=== PATIENT | female | born 1985 | race Two or more races ===

== ENCOUNTER 2017-07-06 09:29 | Emergency (ER) | payer SELFPAY ==
[~2017-07-06] VITALS: Ht 177.8 cm; Wt 62.6 kg
[2017-07-06] MEDS ORDERED: SUDOGEST PE10 MG PO (09:39)
[2017-07-06 09:46] VITALS: BP 107/73
[2017-07-06] MEDS ORDERED: AMOXICILLIN500 MG ORAL (11:07)
[2017-07-06 11:13] VITALS: BP 105/70
--- NOTE | 2017-07-06 12:58 | Emergency Room Report ---
History of Present Illness General Chief Complaint: Earache Source: Patient Present Illness HPI Patient presents emergency department today complaining of right ear pain. Patient states that she has a severe right ear fullness. She states that she cleaned her right ear with Q-tips. She thinks that she has impacted cerumen. She has been using [id number] treatment without much improvement. Because of this she is concerned about flying home. Patient is from [place] and is flying back home to [place] tomorrow. She states that she called her insurance company who advised her to come emergency department for evaluation. She denies any fever chest pain shortness breath. Denies any cough runny nose. She however does complain a mild sore throat. No other complaints are noted. Patient needs a clearance to fly.No other modifying factors. No other associated signs and symptoms. No other complaints were noted. Allergies: Coded Allergies: No Known Allergies (Unverified , 07/06/17) Patient History Past Medical History: none Past Surgical History: none Pertinent Family History: none Social History: Denies: smoking, alcohol use, drug use Last Menstrual Period: on period Reviewed Nursing Documentation: PMH: Agreed; PSxH: Agreed Nursing Documentation-PMH Past Medical History: No Stated History Review of Systems All Other Systems: negative except mentioned in HPI Physical Exam Vital Signs Date Time Temp Pulse Resp B/P (MAP) Pulse Ox O2 Delivery O2 Flow Rate FiO2 07/06/17 09:35 98.4 82 14 107/73 99 Room Air 98.4 Sp02 EP Interpretation: reviewed, normal General Appearance: normal inspection, well appearing, no apparent distress, alert Head: atraumatic Eyes: bilateral eye normal inspection ENT: hearing grossly normal, normal voice, pharyngeal erythema, other - Impacted right cerumen in the external canal Neck: normal inspection Respiratory: no respiratory distress Cardiovascular #1: no edema Genitourinary: no CVA tenderness Musculoskeletal: normal inspection Neurologic: normal inspection, alert, responsive, speech normal Psychiatric: normal inspection, judgement/insight normal, mood/affect normal Skin: normal inspection, normal color, no rash Medical Decision Making Diagnostic Impression: Primary Impression: Acute pharyngitis Qualified Codes: J02.9 - Acute pharyngitis, unspecified Additional Impression: Cerumen impaction Qualified Codes: H61.21 - Impacted cerumen, right ear ER Course Patient presents emergency department today with impacted cerumen. Differential considerations include otitis media. Patient's ear canal was irrigated fluid cerumen was removed. Repeat exam shows clear tympanic membrane and clear ear canal. Patient's ENT exam also includes some mild erythema in the pharynx. Patient does complain of some mild sore throat. Patient was giving antibiotics amoxicillin to be taken if she does not feel better.Patient is advised to follow up with primary doctor in 2-3 days and return the emergency room for any worsening symptoms and as needed.patient was cleared to fly home. Last Vital Signs Date Time Temp Pulse Resp B/P (MAP) Pulse Ox O2 Delivery O2 Flow Rate FiO2 07/06/17 11:13 98.3 73 16 105/70 99 Room Air Status: improved Disposition: HOME, SELF-CARE Condition: Stable Scripts Amoxicillin* (AMOXIL*) 500 Mg Capsule 500 MG ORAL THREE TIMES A DAY, #21 CAP Prov: CAILIN CULVER M.D. 07/06/17 Departure Forms: Return to Work Return to Work in (Days): 0 Other Restrictions: Patient is fit to fly. Please allow patient to fly home. Patient Instructions: Cerumen Impaction, Pharyngitis, [id number] Additional Instructions: Patient was seen in our emergency department because she had severe right ear fullness. Patient was concerned about flying on the plane because of her fullness in the ear as this can result in permanent hearing damage and tympanic membrane injury. Patient's evaluation shows evidence of cerumen impaction. This was irrigated and cleared. Patient is fit to fly now. Patient can fly safely. This was a medical necessity treatment prior to being cleared to fly. Patient again is clear to fly. CAILIN CULVER M.D. July 06, 2017 12:58
== END 2017-07-06 11:14 | disposition home or self-care (01) ==
LOC: EMR 10:57
DX: J02.9 Acute pharyngitis, unspecified (principal); H61.21 Impacted cerumen, right ear
CPT/HCPCS: 99283